=== PATIENT | male | born 1980 | race Two or more races ===

== ENCOUNTER 2020-08-15 09:09 | Emergency (ER) | payer OTHER ==
[2020-08-15 09:26] VITALS: BP 109/50; PULSE 65; TEMP 98.1; BMI 20.9
== END 2020-08-15 11:41 | disposition home or self-care (01) ==
LOC: JER 09:09 → JERFT 09:09
DX: R50.9 Fever, unspecified (principal); M79.10 Myalgia, unspecified site; Z11.59 Encounter for screening for other viral diseases
CPT/HCPCS: 99283-25; C9803; U0003

== ENCOUNTER 2021-02-01 13:17 | Emergency (ER) | payer OTHER ==
[2021-02-01 13:35] VITALS: BP 117/71; PULSE 85; TEMP 98.1; BMI 24.3
== END 2021-02-01 13:49 | disposition home or self-care (01) ==
LOC: JER 13:17 → JERFT 13:17
DX: B02.9 Zoster without complications (principal)
CPT/HCPCS: 99281-25

== ENCOUNTER 2022-02-14 10:16 | Emergency (ER) | payer OTHER ==
[2022-02-14 10:29] VITALS: BP 111/56; PULSE 77; TEMP 98.3; BMI 21.9
[2022-02-14] MEDS ORDERED: KETOROLAC TROMETHAMINE 30 MG/1 ML VIAL IM ONE (11:24)
[2022-02-14] MEDS ORDERED: KETOROLAC TROMETHAMINE 30 MG/1 ML VIAL ONE (11:24)
== END 2022-02-14 12:31 | disposition home or self-care (01) ==
LOC: JERFT 10:16
PROC: 3E023GC Introduction of Other Therapeutic Substance into Muscle, Percutaneous Approach (ICD-10-PCS; principal; 2022-02-14)
DX: M79.642 Pain in left hand (principal)
CPT/HCPCS: 73130-TC-LT-FY; 99284-25

== ENCOUNTER 2022-05-17 08:39 | Day surgery (SDC) | payer OTHER ==
[2022-05-15 09:17] VITALS: BMI 23.0
[2022-05-17] MEDS ORDERED: LIDOCAINE HCL 1%, 10 MG/ML (20ML VIAL) ONE (08:59)
[2022-05-17] MEDS ORDERED: BUPIVACAINE HCL 100 ML ONE (08:59)
[2022-05-17] MEDS ORDERED: MIDAZOLAM HCL 2 MG/2 ML SINGLE DOSE VIAL ONE (09:17)
[2022-05-17] MEDS ORDERED: ceFAZolin SODIUM 1 GM VIAL ONE ×2 (09:20→09:53)
[2022-05-17] MEDS ORDERED: ONDANSETRON 4 MG/2 ML VIAL ONE (09:53)
[2022-05-17] MEDS ORDERED: DEXAMETHASONE SOD PHOSPHATE 4 MG/1 ML VIAL ONE (09:53)
[2022-05-17] MEDS ORDERED: oxyCODONE HCL 5 MG TABLET PO PRN (10:59)
[2022-05-17] MEDS ORDERED: ONDANSETRON 4 MG/2 ML VIAL IVPUSH PRN (10:59)
[2022-05-17] MEDS ORDERED: LACTATED RINGERS SOLUTION 1,000 ML IV SCH (11:00)
[2022-05-17 11:57] VITALS: RESP 18; TEMP 98
[2022-05-17 12:31] VITALS: BP 115/70; PULSE 77
== END 2022-05-17 12:20 | disposition home or self-care (01) ==
LOC: FASU 08:39
PROVIDERS: ATTEND Orthopaedic Surgery
PROC: 0JBK0ZZ Excision of Left Hand Subcutaneous Tissue and Fascia, Open Approach (ICD-10-PCS; 2022-05-17)
PROC: 0JBK0ZZ Excision of Left Hand Subcutaneous Tissue and Fascia, Open Approach (ICD-10-PCS; principal; 2022-05-17 10:08)
DX: M79.5 Residual foreign body in soft tissue (principal)
CPT/HCPCS: 88300-TC; 94760

== ENCOUNTER 2023-07-19 21:41 | Emergency (ER) | payer OTHER ==
[2023-07-19 21:46] VITALS: BP 122/79; PULSE 72; RESP 18; TEMP 98; BMI 24.5
[2023-07-19] MEDS ORDERED: ACETAMINOPHEN 325 MG TABLET (FP) PO ONE (22:24)
[2023-07-19] MEDS ORDERED: CYCLOBENZAPRINE HCL 10 MG TABLET (FP) PO ONE (22:24)
[2023-07-19] MEDS ORDERED: ACETAMINOPHEN 325 MG TABLET (FP) ONE (22:30)
[2023-07-19] MEDS ORDERED: CYCLOBENZAPRINE HCL 10 MG TABLET (FP) ONE (22:31)
== END 2023-07-19 23:18 | disposition home or self-care (01) ==
LOC: JER 21:41
DX: M54.50 Low back pain, unspecified (principal); S39.012A Strain of muscle, fascia and tendon of lower back, initial encounter; X50.0XXA Overexertion from strenuous movement or load, initial encounter
CPT/HCPCS: 99283-25

== ENCOUNTER 2023-08-24 13:09 | Emergency (ER) | payer SELFPAY ==
[2023-08-24 13:19] VITALS: BP 119/63; PULSE 96; RESP 18; TEMP 100.5; BMI 24.7
[2023-08-24] MEDS ORDERED: IBUPROFEN 600 MG TABLET (FP) PO ONE ×2 (15:15→15:23)
[2023-08-24] MEDS ORDERED: ACETAMINOPHEN 500 MG TABLET (FP) PO ONE (15:15)
[2023-08-24] MEDS ORDERED: ACETAMINOPHEN 500 MG TABLET (FP) ONE (15:24)
== END 2023-08-24 15:26 | disposition home or self-care (01) ==
LOC: JERFT 13:09 → JER 13:09 → JERFT 15:26
DX: R50.9 Fever, unspecified (principal); R51.9 Headache, unspecified; J02.9 Acute pharyngitis, unspecified; M79.10 Myalgia, unspecified site; R05.9 Cough, unspecified; J10.1 Influenza due to other identified influenza virus with other respiratory manifestations; Z20.822 Contact with and (suspected) exposure to COVID-19
CPT/HCPCS: 0241U-QW; 99283-25